=== PATIENT | female | born 1975 | race African-American/Black ===

== ENCOUNTER → 2022-05-16 14:07 | Outpatient (CLI) | payer OTHER, SELFPAY ==
--- NOTE | 2022-05-16 14:12 | US_ITS ---
PROCEDURE INFORMATION: Exam: US Right Breast, Complete MG Bilateral Diagnostic Breast Tomosynthesis Exam date and time: 05/16/2022 2:11 PM Age: 47 years old Clinical indication: Concern for right breast lump. No family history of breast cancer. TECHNIQUE: Imaging protocol: Complete ultrasound of all four quadrants of the Right breast and the retroareolar regions, including ultrasound of the axilla when performed. Bilateral Diagnostic tomosynthesis and 2D mammography including computer-aided detection (CAD) when performed. Unilateral or bilateral exam. Triangular marker placed on the area of palpable concern in the right breast and spot compression added. COMPARISON: No relevant prior studies available. If prior mammograms are provided, I am happy to add an addendum. FINDINGS: MAMMOGRAPHY: Breast composition: The breasts are heterogeneously dense, which may obscure small masses. Mass: Corresponding to the area of palpable concern in the right breast, approximately 8-9 o'clock middle to posterior 3rd, is an oval 2.0 partly circumscribed, partly visualized mass. Architectural distortion: None. Calcifications: Grouping of calcifications in the left upper outer quadrant posterior 3rd. Asymmetric density: None. Skin thickening: None. Axillary adenopathy: None. ULTRASOUND: See comment Right sonography, all 4 quadrants, retroareolar and axilla. Corresponding to the palpable and mammographic mass in the right breast at 8 o'clock 6 cm from the nipple is a complex cyst with prominent, avascular, non dependent masslike internal echoes, with sloping and partly lobulated margin, which measures 1.5 x 1.7 x 1.9 cm. Sonographically unremarkable right axillary lymph node. IMPRESSION: Suggest ultrasound-guided biopsy of complex cyst on the right at 8 o'clock corresponding to the palpable finding. Comparison to prior mammogram is recommended. If this is not provided within 2 weeks, patient will be recalled for left diagnostic magnification views in CC and true lateral for further evaluation of left breast calcifications. ASSESSMENT: BI-RADS Category 4: Suspicious
== END ==
PROVIDERS: Visit Provider Surgery
DX: N63.10 Unspecified lump in the right breast, unspecified quadrant (principal)
CPT/HCPCS: 76641; 77062; 77066; G0279

== ENCOUNTER → 2022-05-27 14:11 | Outpatient (CLI) | payer OTHER, SELFPAY ==
--- NOTE | 2022-05-27 14:11 | MM_ITS ---
PROCEDURE INFORMATION: Exam: MG Left Diagnostic Breast Tomosynthesis Exam date and time: 05/27/2022 2:03 PM Age: 47 years old Clinical indication: Patient recalled on the basis of a screening mammogram for further evaluation; Left breast; Lt breast calcifications TECHNIQUE: Imaging protocol: Left Diagnostic tomosynthesis and 2D mammography including computer-aided detection (CAD) when performed. Unilateral or bilateral exam. COMPARISON: MG MM DIG MAMM BI DX W/CAD 05/16/2022 2:11 PM FINDINGS: MAMMOGRAPHY: Digital diagnostic magnification views of the posterior left upper outer quadrant demonstrate a variable group of microcalcifications. There is no associated soft tissue mass. The calcifications vary in size, shape, and density and span 1.2 cm of breast tissue. IMPRESSION: Indeterminate clustered calcifications in the left breast. Stereotactic core biopsy is recommended for further evaluation. Report dated 05/16/2022 also suggested ultrasound-guided core biopsy of a right 8 o'clock axis complex cyst corresponding to the patient's complaint of palpable abnormality. ASSESSMENT: BI-RADS Category 4: Suspicious
== END ==
PROVIDERS: PCP Internal Medicine; Visit Provider Surgery
DX: R92.8 Other abnormal and inconclusive findings on diagnostic imaging of breast (principal); R92.1 Mammographic calcification found on diagnostic imaging of breast
CPT/HCPCS: 77061; 77065; G0279

== ENCOUNTER → 2022-06-11 07:59 | Outpatient (CLI) | payer OTHER, SELFPAY ==
--- NOTE | 2022-06-11 07:59 | US_ITS ---
FINAL REPORT CLINICAL HISTORY: 8:00 RT BREAST MASS FNA FINDINGS: Standard written informed consent was obtained. Lesion was localized under sonographic guidance which demonstrated a complex cystic lesion with isoechoic and anechoic components. Lesion measured 18 mm located at 8:00. The area was prepped in a routine sterile fashion. Local anesthesia was achieved with 1% lidocaine. An 18-gauge needle was directed within the lesion. Both anechoic and isoechoic components were completely aspirated within the needle. There was no residual solid component with cystic lesion completely decompressed following aspiration. Approximately 5 mL's of dark fluid was removed. Fluid was submitted for cytologic evaluation. If there are no suspicious cells identified within the specimen, patient may resume screening mammography. IMPRESSION: 1. Technically successful complete aspiration of complex cyst right breast at 8:00 yielding 5 mL's of dark fluid. Suspect hemorrhagic cyst. 2. Specimen submitted for cytologic evaluation Authenticated and ERN
== END ==
PROVIDERS: PCP Internal Medicine; Visit Provider Surgery
DX: N63.11 Unspecified lump in the right breast, upper outer quadrant (principal)
CPT/HCPCS: 19083

== ENCOUNTER → 2022-07-14 08:44 | Outpatient (CLI) | payer OTHER, SELFPAY ==
--- NOTE | 2022-07-14 08:44 | MM_ITS ---
FINAL REPORT CLINICAL HISTORY: . FINDINGS: STEREOTACTIC GUIDED LEFT BREAST BIOPSY, CLIP PLACEMENT, SPECIMEN RADIOGRAPH AND POST BIOPSY MAMMOGRAM Indication: Suspicious calcifications Findings: The stereotactic guided breast biopsy procedure was explained in detail to the patient including potential risk and benefits. The patient voiced an understanding of the procedure, was given an opportunity to ask questions, after which informed consent was obtained. The patient was positioned upon the stereotactic unit in the prone position. The breast was prepped in the usual sterile fashion. Subcutaneous soft tissues were anesthetized with lidocaine with epinephrine. Subsequently, with intermittent stereotactic guidance, the stereotactic biopsy needle was advanced into the breast in the region of the mammographic abnormality corresponding to recent diagnostic mammogram. Multiple vacuum assisted core samples were obtained. Sampling was thought to be adequate and the biopsy clip marker was deployed in the region of biopsy. Additional imaging as detailed below was performed. Specimen radiograph: Calcifications confirmed adequate Post procedure routine CC and MLO view mammogram: Post biopsy changes. Biopsy marker clip noted to be in the appropriate location. No residual calcifications in the region of interest reflecting adequate sampling. Patient tolerated the procedure well. No immediate complications. IMPRESSION: 1. Technically successful stereotactic guided biopsy of left upper outer quadrant calcifications 2. Biopsy marker clip deployed 3. Post biopsy mammogram obtained as above Pathology findings are concordant with mammographic findings. Short-term mammographic follow-up recommended in 6 months. Authenticated and ERN
--- NOTE | 2022-07-14 08:52 | MM_ITS ---
FINAL REPORT CLINICAL HISTORY: . s/p stereotactic bx, abnormal left breast calcifications FINDINGS: STEREOTACTIC GUIDED LEFT BREAST BIOPSY, CLIP PLACEMENT, SPECIMEN RADIOGRAPH AND POST BIOPSY MAMMOGRAM Indication: Suspicious calcifications Findings: The stereotactic guided breast biopsy procedure was explained in detail to the patient including potential risk and benefits. The patient voiced an understanding of the procedure, was given an opportunity to ask questions, after which informed consent was obtained. The patient was positioned upon the stereotactic unit in the prone position. The breast was prepped in the usual sterile fashion. Subcutaneous soft tissues were anesthetized with lidocaine with epinephrine. Subsequently, with intermittent stereotactic guidance, the stereotactic biopsy needle was advanced into the breast in the region of the mammographic abnormality corresponding to recent diagnostic mammogram. Multiple vacuum assisted core samples were obtained. Sampling was thought to be adequate and the biopsy clip marker was deployed in the region of biopsy. Additional imaging as detailed below was performed. Specimen radiograph: Calcifications confirmed adequate Post procedure routine CC and MLO view mammogram: Post biopsy changes. Biopsy marker clip noted to be in the appropriate location. No residual calcifications in the region of interest reflecting adequate sampling. Patient tolerated the procedure well. No immediate complications. IMPRESSION: 1. Technically successful stereotactic guided biopsy of left upper outer quadrant calcifications 2. Biopsy marker clip deployed 3. Post biopsy mammogram obtained as above Authenticated and ERN
== END ==
PROVIDERS: PCP Internal Medicine; Visit Provider Surgery
DX: R92.8 Other abnormal and inconclusive findings on diagnostic imaging of breast (principal)
CPT/HCPCS: 19081; 76098; 77065

== ENCOUNTER 2024-07-21 13:38 | Emergency (ER) | payer OTHER, SELFPAY ==
[2024-07-21 13:39] VITALS: BP 139/96; PULSE 88; RESP 18; TEMP 36.9; O2SAT 100; BMI 18.8
--- NOTE | 2024-07-21 13:41 | ED_ITS ---
<Statement entered by Danni Morillo DO - 07/22/24 00:06> I was consulted by the VIVIAN, and we discussed the complexity of the problems being addressed. I approved the treatment and management plan for this patient's care in the emergency department, thus performing a substantive portion of the medical decision making. I was present at time of departure of Dr. Verma at 1500 Danni Morillo DO Discharge Plan Disposition Patient Disposition: Home, Self-Care Condition: Good Prescriptions Prescriptions: New nitrofurantoin monohyd/m-cryst 100 mg capsule 100 mg PO BID 5 Days Qty: 10 0RF Rx Instructions: must administer with a meal/food No Action norethindrone (contraceptive) 0.35 mg tablet 0.35 mg PO Patient Comments: TAKE 1 TABLET BY MOUTH EVERY DAY Referrals Follow up/Referrals: Kavon Cespedes [Primary Care Provider] - See instructions Activity Restrictions/Add. Instructions Additional Instructions/Restrictions: We discussed if your symptoms continue change or worsen follow-up with your PCP or return to the ER as needed. I have called in a prescription to your pharmacy for the urinary tract infection. Please take it till it all your antibiotic is gone. Clinical Impressions Clinical Impression: Abdominal pain Qualifiers: Abdominal location: periumbilical Qualified Code(s): R10.33 - Periumbilical pain Urinary tract infectious disease Qualifiers: Urinary tract infection type: site unspecified Hematuria presence: with hematuria Qualified Code(s): N39.0 - Urinary tract infection, site not specified Stand Alone Forms Stand Alone Forms: Work/School Release Instructions Patient Instructions: DI for Acute Abdominal Pain Print Language Print Language: Arabic Discharge ED Provider: Herbert Verma General Adult HPI <WESLEY Montoya - Last Filed: 07/21/24 22:45> General Chief complaint: Abdominal Pain Stated complaint: abd pain, vomiting, chills, headache, nausea Time Seen by Provider: 07/21/24 13:41 History of Present Illness HPI narrative: Patient presents for evaluation of headache periumbilical abdominal pain that is intermittent over the last 2 weeks and nausea vomiting. She denies fever chills hemoptysis hematochezia melena hematemesis hematuria. She is tolerating oral intake and is passing stool and flatus. She gives no history of dysuria or flank pain. She denies vaginal discharge. She has never had any abdominal surgeries. Related Data Home Medications ?Medication ?Instructions ?Recorded ?Confirmed norethindrone (contraceptive) 0.35 0.35 mg PO 04/29/22 07/22/22 mg tablet Previous Rx's ?Medication ?Instructions ?Recorded nitrofurantoin 100 mg PO BID 5 days #10 caps 07/21/24 monohydrate/macrocrystals 100 mg capsule Allergies Allergy/AdvReac Type Severity Reaction Status Date / Time No Known Allergies Allergy Verified 07/22/22 15:14 [facility] <WESLEY Montoya - Last Filed: 07/21/24 22:45> [facility] Disclaimer: The information contained in this section may have been updated after the patient was seen, as this information can be updated by other users. Surgical History (Updated 07/22/22 @ 15:14 by TRENTON Urban) History of left breast biopsy History of right breast biopsy Social History Smoking Status: Current every day smoker alcohol intake: never substance use type: denies use current occupational status: employed Travel in the last 8 weeks: Inside the [place] Have you lived/traveled outside [place] in past 30 days?: No Contact w/someone who lives/traveled outside US past 30 days?: No Exposure to someone with infectious disease in past 14 days?: No Do you have a fever (greater than 100.4 F or 38 C)?: No Have you tested positive for COVID-19: No Exposed to someone with COVID-19 in past 14 days?: No Do you have a sore throat?: No Do you have a cough?: No Do you have any weakness?: No Do you have any diarrhea?: No Are you experiencing any unusual bleeding?: No Do you have any muscle aches/pain?: No Do you have any abdominal pain?: Yes Are you experiencing loss of taste or smell?: No Other Medical History Have you received the Pneumonia Vaccine: Yes <WESLEY Montoya - Last Filed: 07/21/24 22:45> ROS Obtained: Yes Systems reviewed as appropriate & no additional complaints except as documented Physical Exam <WESLEY Montoya - Last Filed: 07/21/24 22:45> General General appearance: alert and in no apparent distress Respiratory Respiratory exam: Present normal lung sounds bilaterally Cardiovascular Cardiovascular exam: Present regular rate Neurological Exam Neurological exam: Present alert and oriented X3 Medical Decision Making <WESLEY Montoya - Last Filed: 07/21/24 22:45> Medical Records Medical records reviewed: Yes I reviewed the patient's medical records. Screening: Per USPSTF and CDC recommendations, given the prevalence of disease in our region, it is our hospital?s policy to screen for HIV and viral Hepatitis for all patients aged 18 and over and those with ongoing risk factors. Nikolai Inquiry Pt receiving controlled substance: No Vital Signs: 07/21/24 13:39 07/21/24 17:17 Temperature 98.4 F 98.0 F Temperature Source Oral Pulse Rate 71 Pulse Rate [Radial] 88 Respiratory Rate 18 16 Blood Pressure 137/84 Blood Pressure [Right Arm] 139/96 H Blood Pressure Mean [Right Arm] 110 Blood Pressure Source [Right Arm] Automatic Cuff Blood Pressure Position [Right Arm] Sitting 02 Sat by Pulse Oximetry 100 Oxygen Delivery Method Room Air Lab Data Lab results reviewed: Yes I reviewed the patient's lab results. Lab Results 07/21/24 13:55: Serum HCG, Qual Negative 07/21/24 13:58: WBC 7.2, RBC 4.46, Hgb 12.2, Hct 38.2, MCV 85.7, MCH 27.4, MCHC 31.9, RDW 13.8, Plt Count 217, MPV 12.8 H, Neut % (Auto) 66.5, Lymph % (Auto) 23.9, Stark % (Auto) 7.0, Eos % (Auto) 1.8, Baso % (Auto) 0.7, Neut # (Auto) 4.8, Lymph # (Auto) 1.7, Stark # (Auto) 0.5, Eos # (Auto) 0.1, Baso # (Auto) 0.1, Sodium 141, Potassium 3.3 L, Chloride 103, Carbon Dioxide 29, Anion Gap 12.3, BUN 12, Creatinine 0.80, Estimated Creat Clear 77, Estimated GFR 77, Est GFR ( Amer) 93, Glucose 64 L, Calcium 10.7 H, Magnesium 1.8, Total Bilirubin 0.6, AST 27, ALT 21, Alkaline Phosphatase 72, Total Protein 8.2, Albumin 4.9, G lobulin 3.3 H, Albumin/Globulin Ratio 1.5, Lipase 86, HCV Ab LISA w/Rflx PCR Qn Negative, HIV Ag/Ab Combo Qual Negative 07/21/24 14:25: Urine Color Yellow, Urine Appearance Clear, Urine pH 7.0, Ur Specific Jansen 1.020, Urine Protein Negative, Urine Glucose (UA) Negative, Urine Ketones Negative, Urine Blood Negative, Urine Nitrate Negative, Urine Bilirubin Negative, Urine Urobilinogen 1.0, Ur Leukocyte Esterase Trace, Urine RBC None, Urine WBC 10-20, Ur Squamous Epith Cells 3-5, Urine Bacteria 3+, Urine HCG, Qual Negative 07/21/24 13:58 07/21/24 13:58 Orders (Tests/Meds): ED MEDICATIONS Discontinued Medications Generic Name Dose Route Start Last Admin Trade Name Freq PRN Reason Stop Dose Admin Lactated Ringer's 1,000 mls @ 999 mls/hr 07/21/24 14:15 07/21/24 14:24 Lactated Ringer's 1000 Ml Bag IV 07/21/24 15:15 999 mls/hr .Q1H1M ONE Administration Iopamidol 75 ml 07/21/24 14:57 07/21/24 14:58 Iopamidol-370 (76%);100ml Bottle IV 07/21/24 14:58 75 ml ONCE ONE Administration Nitrofurantoin Macrocrystals 100 mg 07/21/24 17:08 07/21/24 17:10 Nitrofurantoin 100mg Capsule PO 07/21/24 17:09 100 mg ONCE ONE Administration Sodium Chloride 10 ml 07/21/24 14:57 07/21/24 14:58 Sodium Chloride 0.9% 10ml Syr (Rad Only) IV 07/21/24 14:58 10 ml ONCE ONE Administration ORDERS Category Date Time Status CT abdomen pelvis w con Stat Cat Scan 07/21/24 14:15 Completed CBC w/Auto Diff [Complete Blood Count Auto Diff] Stat Lab 07/21/24 13:58 Completed CMP [Comprehensive Metabolic Panel] Stat Lab 07/21/24 13:58 Completed HIV Combo Stat Lab 07/21/24 13:58 Completed Hepatitis C Ab Qual. W/ RFX Stat Lab 07/21/24 13:58 Completed Lipase Stat Lab 07/21/24 13:58 Completed Magnesium Stat Lab 07/21/24 13:58 Completed Serum [HCG Qualitative, Serum] Stat Lab 07/21/24 13:55 Completed UA [Urinalysis and Microscopic] Stat Lab 07/21/24 14:25 Completed Urine , HCG Qual. Stat Lab 07/21/24 14:25 Completed Urine Culture Stat Micro 07/21/24 14:25 Received Medical Decision Narrative: In summary patient is a 49-year-old female who presents to the emergency department for evaluation of 2 weeks of intermittent remittent periumbilical abdominal pain nausea and vomiting. Patient is initially hemodynamically stable with a blood pressure 139/96 pulse 88 respiratory rate 18 temperature is 98.4 pulse ox 100% on room air upon arrival. Physical exam is remarkable for a soft abdomen that is not currently tender no rebound no guarding no rigidity. Bowel sounds normal active. Patient has negative CVA tenderness to percussion. Breath sounds clear and equal bilaterally to the bases.. Differential diagnosis includes constipation versus gastroenteritis versus appendicitis versus cholecystitis etc. Initial workup will be conducted with hematologic labs urinalysis CT scan abdomen pelvis. Initial interventions include Toradol Tylenol. Initial workup reviewed by me and her hematologic labs are nonactionable including a normal white count with no shift slightly potassium 3.3 however her urinalysis shows no red blood cells 10-20 white cells 3-5 epithelial cells and 3+ bacteria which could be consistent with a urinary tract infection. Upon repeat evaluation patient remains pain-free and tolerating oral intake. Given this essentially ruled out any serious or life-threatening condition and while we do not specifically have a cause for her previous symptoms she does have a urinary tract infection for which we will treat. Patient thus is appropriate for discharge with prescription for Macrobid with first dose given here and strict return precautions. Patient to follow-up PCP for recurrence change or worsening signs or symptoms. VIVIAN attestation I was consulted by the VIVIAN, and we discussed the complexity of problems being addressed. I approved the treatment and management plan for this patient's care in the emergency department, thus performing a substantial portion of the medical decision making. Herbert Verma MD <Herbert Verma MD - Last Filed: 07/21/24 16:06> Vital Signs: 07/21/24 13:39 07/21/24 17:17 Temperature 98.4 F 98.0 F Temperature Source Oral Pulse Rate 71 Pulse Rate [Radial] 88 Respiratory Rate 18 16 Blood Pressure 137/84 Blood Pressure [Right Arm] 139/96 H Blood Pressure Mean [Right Arm] 110 Blood Pressure Source [Right Arm] Automatic Cuff Blood Pressure Position [Right Arm] Sitting 02 Sat by Pulse Oximetry 100 Oxygen Delivery Method Room Air Lab Data Lab Results 07/21/24 13:55: Serum HCG, Qual Negative 07/21/24 13:58: WBC 7.2, RBC 4.46, Hgb 12.2, Hct 38.2, MCV 85.7, MCH 27.4, MCHC 31.9, RDW 13.8, Plt Count 217, MPV 12.8 H, Neut % (Auto) 66.5, Lymph % (Auto) 23.9, Stark % (Auto) 7.0, Eos % (Auto) 1.8, Baso % (Auto) 0.7, Neut # (Auto) 4.8, Lymph # (Auto) 1.7, Stark # (Auto) 0.5, Eos # (Auto) 0.1, Baso # (Auto) 0.1, Sodium 141, Potassium 3.3 L, Chloride 103, Carbon Dioxide 29, Anion Gap 12.3, BUN 12, Creatinine 0.80, Estimated Creat Clear 77, Estimated GFR 77, Est GFR ( Amer) 93, Glucose 64 L, Calcium 10.7 H, Magnesium 1.8, Total Bilirubin 0.6, AST 27, ALT 21, Alkaline Phosphatase 72, Total Protein 8.2, Albumin 4.9, G lobulin 3.3 H, Albumin/Globulin Ratio 1.5, Lipase 86, HCV Ab LISA w/Rflx PCR Qn Negative, HIV Ag/Ab Combo Qual Negative 07/21/24 14:25: Urine Color Yellow, Urine Appearance Clear, Urine pH 7.0, Ur Specific Jansen 1.020, Urine Protein Negative, Urine Glucose (UA) Negative, Urine Ketones Negative, Urine Blood Negative, Urine Nitrate Negative, Urine Bilirubin Negative, Urine Urobilinogen 1.0, Ur Leukocyte Esterase Trace, Urine RBC None, Urine WBC 10-20, Ur Squamous Epith Cells 3-5, Urine Bacteria 3+, Urine HCG, Qual Negative Orders (Tests/Meds): ED MEDICATIONS Discontinued Medications Generic Name Dose Route Start Last Admin Trade Name Freq PRN Reason Stop Dose Admin Lactated Ringer's 1,000 mls @ 999 mls/hr 07/21/24 14:15 07/21/24 14:24 Lactated Ringer's 1000 Ml Bag IV 07/21/24 15:15 999 mls/hr .Q1H1M ONE Administration Iopamidol 75 ml 07/21/24 14:57 07/21/24 14:58 Iopamidol-370 (76%);100ml Bottle IV 07/21/24 14:58 75 ml ONCE ONE Administration Nitrofurantoin Macrocrystals 100 mg 07/21/24 17:08 07/21/24 17:10 Nitrofurantoin 100mg Capsule PO 07/21/24 17:09 100 mg ONCE ONE Administration Sodium Chloride 10 ml 07/21/24 14:57 07/21/24 14:58 Sodium Chloride 0.9% 10ml Syr (Rad Only) IV 07/21/24 14:58 10 ml ONCE ONE Administration ORDERS Category Date Time Status CT abdomen pelvis w con Stat Cat Scan 07/21/24 14:15 Completed CBC w/Auto Diff [Complete Blood Count Auto Diff] Stat Lab 07/21/24 13:58 Completed CMP [Comprehensive Metabolic Panel] Stat Lab 07/21/24 13:58 Completed HIV Combo Stat Lab 07/21/24 13:58 Completed Hepatitis C Ab Qual. W/ RFX Stat Lab 07/21/24 13:58 Completed Lipase Stat Lab 07/21/24 13:58 Completed Magnesium Stat Lab 07/21/24 13:58 Completed Serum [HCG Qualitative, Serum] Stat Lab 07/21/24 13:55 Completed UA [Urinalysis and Microscopic] Stat Lab 07/21/24 14:25 Completed Urine , HCG Qual. Stat Lab 07/21/24 14:25 Completed Urine Culture Stat Micro 07/21/24 14:25 Received Medical Decision Narrative: In summary patient is a [age, sex] who presents to the emergency department for evaluation of [complaint]. Patient is [hemodynamically stable/unstable] upon arrival, [febrile/afebrile]. [Unremarkable physical exam, nonfocal exam versus focal remarkable exam]. Differential diagnosis includes [DDx]. Initial workup will be conducted with [hematologic labs, imaging, respiratory swab, describe workup]. Initial interventions include [crystalloid bolus, medications, p.o. challenge, etc.] initial workup reviewed by me [hematologic labs are remarkable for... Imaging remarkable for... Urinalysis remarkable for]. Upon repeat evaluation [patient had acceptable resolution of symptoms, had persistent pain for which additional interventions were conducted (describe interventions), tolerated p.o., was ambulatory, etc.]. Given this [patient is appropriate for discharge at this time and will be discharged with a prescription for... The case was discussed with hospital medicine regarding management and they will admit the patient their service for continued evaluation at this time... Etc.] Places where you can increase complexity: I informally interpreted the patient's chest x-ray or CT read and is remarkable for... Documenting what the athletic monitor shows with rate and rhythm Consideration of test but deferring. Ex: I considered chest x-ray on this patient however given that they have no oxygen requirement and are clear to auscultation all lung ornelas will be deferred. Social determinants of health: Given that patient is undomiciled increases complexity. Given that patient has polysubstance abuse compounds all aspects of care VIVIAN attestation I was consulted by the VIVIAN, and we discussed the complexity of problems being addressed. I approved the treatment and management plan for this patient's care in the emergency department, thus performing a substantial portion of the medical decision making. Herbert Verma MD Critical Care <WESLEY Montoya - Last Filed: 07/21/24 22:45> Critical Care Time Critical Care Time: No
--- NOTE | 2024-07-21 14:15 | CT_ITS ---
FINAL REPORT TECHNIQUE: Oral and IV contrast enhanced exam This study was performed with techniques to keep radiation doses as low as reasonably achievable, (ALARA). Individualized dose reduction techniques using automated exposure control or adjustment of mA and/or kV according to the patient's size were employed. CLINICAL HISTORY: Acute abdominal pain COMPARISON: None FINDINGS: Abdomen: No acute density is seen within the lung bases. The gallbladder is unremarkable. Solid abdominal organs are unremarkable. No bowel obstruction is present. There is no free air. No fluid collection is seen. There is no adenopathy. Pelvis: The appendix is normal. No bowel wall thickening is present. There is no free fluid. No pelvic mass is seen. IMPRESSION: Unremarkable exam Reviewed, Interpreted and Dictated by Michael Escobedo MD Transcribed by Ariadne Fish Authenticated and [facility]
[2024-07-21] MEDS: LACTATED RINGERS 1000ML 1,000 ML 999 ML IV (14:24)
[2024-07-21 14:25] LABS: Basophils # 0.1 K/mm3 (0-0.2); Basophils % 0.7 % (0.1-2.0); Eosinophils # 0.1 K/mm3 (0.0-0.4); Eosinophils % 1.8 % (0.1-12.0); Hematocrit 38.2 % (37.0-47.0); Hemoglobin 12.2 g/dL (12.2-16.2); Lymphocytes # 1.7 K/mm3 (0.7-4.5); Lymphocytes % 23.9 % (10-50); Mean Corpuscular HGB Conc 31.9 g/dL (31.8-35.4); Mean Corpuscular Hemoglobin 27.4 pg (27.0-31.2); Mean Corpuscular Volume 85.7 fl (81-99); Mean Platelet Volume 12.8 fl (7.4-10.4); Monocytes # 0.5 K/mm3 (0.1-1.0); Neutrophils # 4.8 K/mm3 (1.8-7.8); Neutrophils % 66.5 % (37.0-80.0); Platelet Count 217 K/mm3 (142-424); Red Blood Count 4.46 M/mm3 (4.20-5.40); Red Cell Distribution Width 13.8 % (11.5-17.5); White Blood Count 7.2 K/mm3 (4.8-10.8)
[2024-07-21 14:31] LABS: Microscopic, Urine URINE MICROSCOPIC (MICROSCOPIC)
[2024-07-21 14:32] LABS: Alanine Aminotransferase 21 U/L (12-78); Albumin Level 4.9 g/dl (3.5-5.0); Albumin/Globulin Ratio 1.5 (1.1-1.8); Alkaline Phosphatase 72 U/L (38-126); Anion Gap 12.3 mEq/L (5-15); Aspartate Amino Transferase 27 U/L (14-36); Bilirubin,Total 0.6 mg/dl (0.2-1.3); Blood Urea Nitrogen 12 mg/dl (7-17); Calcium 10.7 mg/dl (8.4-10.2); Carbon Dioxide 29 mmol/L (22.0-30.0); Chloride 103 mmol/L (98-107); Creatinine Clearance Estimated 77 mL/min (50-200); Estimated Glomerular Filt Rate 77 ml/min (>60); GFR (African American) 93 ML/MIN (>60); Globulin 3.3 g/dL (1.3-3.2); Glucose 64 mg/dl (74-100); Lipase 86 U/L (23-300); Magnesium 1.8 mg/dl (1.6-2.3); Potassium 3.3 mmoL/L (3.5-5.1); Sodium 141 mmol/L (136-145); Total Protein,Serum 8.2 g/dl (6.3-8.2)
[2024-07-21 14:35] LABS: Appearance,Urine CLEAR (Clear); Bilirubin,Urine Negative (Negative); Blood, Urine Negative (Negative); Color,Urine YELLOW (Yellow); Glucose,Urine (UA) Negative (Negative); Ketones,Urine Negative (Negative); Leukocyte Esterase,Urine TRACE (Negative); Nitrate,Urine Negative (Negative); Protein,Urine Negative (Negative)
[2024-07-21 14:38] LABS: Urine Pregnancy, HCG Qual. Negative (Negative)
[2024-07-21] MEDS: IOPAMIDOL-370 (76%);100ML BOTTLE 75 ML IV (14:58)
[2024-07-21] MEDS: SODIUM CHLORIDE 0.9% 10ML SYR (RAD ONLY) 10 ML IV (14:58)
[2024-07-21 15:28] LABS: Bacteria,Urine 3+ /lpf
[2024-07-21 15:29] LABS: HCG Qualitative, Serum Negative (Negative)
[2024-07-21 16:31] LABS: HIV Combo NEGATIVE (Negative)
[2024-07-21 16:38] LABS: Hepatitis C Ab Qual. W/ RFX NEGATIVE (Negative)
[2024-07-21] MEDS: NITROFURANTOIN 100MG CAPSULE 100 MG PO (17:10)
[2024-07-21 17:17] VITALS: BP 137/84; PULSE 71; RESP 16; TEMP 36.7
== END 2024-07-21 17:18 | disposition home or self-care (01) ==
PROVIDERS: Physician Assistant; Emergency Provider Student in an Organized Health Care Education/Training Program; PCP Internal Medicine
DX: N39.0 Urinary tract infection, site not specified (principal); R10.33 Periumbilical pain; R11.2 Nausea with vomiting, unspecified; R51.9 Headache, unspecified
CPT/HCPCS: 74177; 80053; 81001; 81025; 83690; 83735; 84703; 85025; 86803; 87086; 87389; 96360; 99285; J7120; Q9967